=== PATIENT | male | born 1950 | race Caucasian/White ===

== ENCOUNTER → 2018-04-07 | Outpatient (CLI) | payer OTHER ==
[~2018-04-07] MED LIST: HYDR-5688 PO; MOME0.1O TOP; NAPR1TAB9 PO; PANT40TA PO
[2018-04-07 13:27] LABS: BASO % 0.3 %; BASO ABS # 0.02 K/uL (0-0.2); EOS % 0.5 %; EOS ABS # 0.03 K/uL (0-0.5); HEMATOCRIT 34.6 % (42-52); HEMOGLOBIN 10.8 g/dL (14.0-18.0); IG# 0.01 K/uL (0.00-0.02); LYMPH % 9.7 %; LYMPH ABS # 0.56 K/uL (1.2-3.4); MEAN CELL VOLUME 75.9 fL (80-100); MEAN CORPUSCULAR HEMOGLOBIN 23.7 pg (25-34); MEAN CORPUSCULAR HGB CONC 31.2 g/dl (32-36); MEAN PLATELET VOLUME 8.8 fL (7.4-10.4); MONO % 12.1 %; NEUT % 77.2 %; NEUT ABS # 4.45 K/uL (1.4-6.5); PLATELET COUNT 280 K/uL (130-400); RED CELL DISTRIBUTION WIDTH CV 20.3 % (11.5-14.5); RED CELL DISTRIBUTION WIDTH SD 56.5 fL (36.4-46.3); WHITE BLOOD COUNT 5.77 K/uL (4.8-10.8)
[2018-04-07 13:46] LABS: ALKALINE PHOSPHATASE 95 U/L (45-117); ALT/SGPT 13 U/L (12-78); AST/SGOT 14 U/L (15-37); BLOOD UREA NITROGEN 10 mg/dl (7-18); CARBON DIOXIDE 24 mmol/L (21-32); CREATININE 0.95 mg/dl (0.60-1.40); GLUCOSE 96 mg/dl (70-99); POTASSIUM 3.1 mmol/L (3.5-5.1); SODIUM 136 mmol/L (136-145); TOTAL PROTEIN 7.6 gm/dl (6.4-8.2)
== END | disposition home or self-care (01) ==
LOC: C.LAB 11:33
PROVIDERS: ATTEND Surgery
DX: R19.7 Diarrhea, unspecified (principal); D64.9 Anemia, unspecified; C18.9 Malignant neoplasm of colon, unspecified; Z98.890 Other specified postprocedural states

== ENCOUNTER 2018-05-02 10:58 | Emergency (ER) | payer OTHER ==
[~2018-05-02] VITALS: Ht 165.1 cm; Wt 84.8 kg
[2018-05-02 11:27] VITALS: TEMP 37; Ht 165.1 cm; Wt 84.8 kg
[2018-05-02] MEDS ORDERED: SODIUM CHLORIDE 0.9% 1000ML 1,000 ML IV STA (12:07)
[2018-05-02 12:27] LABS: BASO % 0.4 %; BASO ABS # 0.01 K/uL (0-0.2); EOS % 2.5 %; EOS ABS # 0.07 K/uL (0-0.5); HEMATOCRIT 36.9 % (42-52); HEMOGLOBIN 11.4 g/dL (14.0-18.0); IG# 0.01 K/uL (0.00-0.02); LYMPH % 16.3 %; LYMPH ABS # 0.46 K/uL (1.2-3.4); MEAN CELL VOLUME 80.6 fL (80-100); MEAN CORPUSCULAR HEMOGLOBIN 24.9 pg (25-34); MEAN CORPUSCULAR HGB CONC 30.9 g/dl (32-36); MONO % 17.3 %; MONO ABS # 0.49 K/uL (0.11-0.59); NEUT % 63.1 %; NEUT ABS # 1.79 K/uL (1.4-6.5); PLATELET COUNT 154 K/uL (130-400); RED CELL DISTRIBUTION WIDTH CV 20.5 % (11.5-14.5); RED CELL DISTRIBUTION WIDTH SD 60.5 fL (36.4-46.3); WHITE BLOOD COUNT 2.83 K/uL (4.8-10.8)
[2018-05-02 12:49] LABS: ALBUMIN 3.2 gm/dl (3.4-5.0); ALKALINE PHOSPHATASE 84 U/L (45-117); ALT/SGPT 15 U/L (12-78); AST/SGOT 18 U/L (15-37); BLOOD UREA NITROGEN 12 mg/dl (7-18); CALCIUM 8.9 mg/dl (8.5-10.1); CARBON DIOXIDE 23 mmol/L (21-32); CREATININE 1.04 mg/dl (0.60-1.40); GLUCOSE 77 mg/dl (70-99); LIPASE 172 U/L (73-393); POTASSIUM 3.8 mmol/L (3.5-5.1); SODIUM 138 mmol/L (136-145)
[2018-05-02] MEDS ORDERED: VANCOMYCIN HCL 125 MG/2.5ML SOLN PO STA (14:10)
[2018-05-02] MEDS ORDERED: VANC5CAP PO (14:15)
[2018-05-02 14:59] VITALS: BP 142/74; PULSE 54; O2SAT 99
--- NOTE | 2018-05-02 16:29 | EMERGENCY ROOM VISIT NOTE ---
History Report prepared by Stephen: Teena Summers Under the Supervision of: Dr. Tip Rogers M.D. First contact with patient: 11:57 Chief Complaint: GI ASSESSMENT Stated Complaint: POSITIVE C.DIFF History of Present Illness The patient is a 67 year old male who presents to the Emergency Room for a GI assessment. He is accompanied by his who reports that the patient had 3 feet of his bowel removed due to cancer in March and developed positive C.Diff 2 weeks lighter captain. The patient notes he had uncontrollable diarrhea that is green and slimy last night but denies any vomiting or fevers. He also states he had some abdominal pain which he describes as cramping. He states he has not eaten since 4 days lighter captain. Source of History: patient Onset: 2 weeks lighter captain Position: head, other (upper and lower extremities) Quality: cramping (abdominal pain), other (Positive C.Diff) Timing: other (after colon resection surgery) Associated Symptoms: + diarrhea (uncontrollable, green and slimy), No fevers , No vomiting Review of Systems See HPI for pertinent positives and negatives. A total of ten systems were reviewed and were otherwise negative. Past Medical & Surgical Medical Problems: (1) Colon cancer (2) No active medical problems Family History Diabetes mellitus FH: heart disease Hypertension Social History Smoking Status: Never Smoker Alcohol Use: none Marital Status: Housing Status: lives with significant other Occupation Status: employed Current/Historical Medications Scheduled Pantoprazole (Protonix), 40 MG PO QAM Vancomycin Hcl (Vancomycin), 1 CAP PO QID Allergies Coded Allergies: No Known Allergies (Unverified , 05/02/18) Physical Exam Vital Signs Date Time Temp Pulse Resp B/P (MAP) Pulse Ox O2 Delivery O2 Flow Rate FiO2 05/02/18 14:59 54 16 142/74 99 05/02/18 13:25 54 18 152/67 97 Room Air 05/02/18 11:27 37.0 71 18 134/76 98 Room Air Physical Exam GENERAL: Awake, alert, fatigued appearing , in no distress HENT: Normocephalic, atraumatic. Oropharynx unremarkable. EYES: Normal conjunctiva. Sclera non-icteric. NECK: Supple. No nuchal rigidity. RESPIRATORY: Clear to auscultation. No wheezes. Normal respiratory effort. CARDIAC: Normal rate. Normal rhythm. Extremities warm and well perfused. GI: Soft, non-distended. No tenderness to palpation. No rebound or guarding. No masses. Well healed midline abdominal scar without tenderness. RECTAL: Deferred. MUSCULOSKELETAL: Atraumatic. Chest examination reveals no tenderness. There is no CVA tenderness to palpation. LOWER EXTREMITIES: Calves are equal size bilaterally and non-tender. No edema NEURO: Normal sensorium. No sensory or motor deficits noted. No facial droop. SKIN: Warm and dry. No rash or jaundice noted. Medical Decision & Procedures Laboratory Results 05/02/18 12:15 Red Blood Count 4.58, Mean Corpuscular Volume 80.6, Mean Corpuscular Hemoglobin 24.9, Mean Corpuscular Hemoglobin Concent 30.9, Mean Platelet Volume 8.0, Neutrophils (%) (Auto) 63.1, Lymphocytes (%) (Auto) 16.3, Monocytes (%) (Auto) 17.3, Eosinophils (%) (Auto) 2.5, Basophils (%) (Auto) 0.4, Neutrophils # (Auto ) 1.79, Lymphocytes # (Auto) 0.46, Monocytes # (Auto) 0.49, Eosinophils # (Auto ) 0.07, Basophils # (Auto) 0.01 05/02/18 12:15 Test 05/02/18 12:15 05/02/18 13:30 White Blood Count 2.83 K/uL (4.8-10.8) Red Blood Count 4.58 M/uL (4.7-6.1) Hemoglobin 11.4 g/dL (14.0-18.0) Hematocrit 36.9 % (42-52) Mean Corpuscular Volume 80.6 fL (80-100) Mean Corpuscular Hemoglobin 24.9 pg (25-34) Mean Corpuscular Hemoglobin Concent 30.9 g/dl (32-36) Platelet Count 154 K/uL (130-400) Mean Platelet Volume 8.0 fL (7.4-10.4) Neutrophils (%) (Auto) 63.1 % Lymphocytes (%) (Auto) 16.3 % Monocytes (%) (Auto) 17.3 % Eosinophils (%) (Auto) 2.5 % Basophils (%) (Auto) 0.4 % Neutrophils # (Auto) 1.79 K/uL (1.4-6.5) Lymphocytes # (Auto) 0.46 K/uL (1.2-3.4) Monocytes # (Auto) 0.49 K/uL (0.11-0.59) Eosinophils # (Auto) 0.07 K/uL (0-0.5) Basophils # (Auto) 0.01 K/uL (0-0.2) RDW Standard Deviation 60.5 fL (36.4-46.3) RDW Coefficient of Variation 20.5 % (11.5-14.5) Immature Granulocyte % (Auto) 0.4 % Immature Granulocyte # (Auto) 0.01 K/uL (0.00-0.02) Polychromasia 1+ Hypochromasia PRESENT Anisocytosis PRESENT Microcytosis PRESENT Schistocytes 1+ Anion Gap 14.0 mmol/L (3-11) Est Creatinine Clear Calc Drug Dose 69.0 ml/min Estimated GFR () 85.7 Estimated GFR (Non- 73.9 BUN/Creatinine Ratio 11.2 (10-20) Calcium Level 8.9 mg/dl (8.5-10.1) Total Bilirubin 0.7 mg/dl (0.2-1) Direct Bilirubin 0.3 mg/dl (0-0.2) Aspartate Amino Transf (AST/SGOT) 18 U/L (15-37) Alanine Aminotransferase (ALT/SGPT) 15 U/L (12-78) Alkaline Phosphatase 84 U/L (45-117) Troponin I < 0.015 ng/ml (0-0.045) Total Protein 8.0 gm/dl (6.4-8.2) Albumin 3.2 gm/dl (3.4-5.0) Lipase 172 U/L (73-393) Urine Color DK YELLOW Urine Appearance CLEAR (CLEAR) Urine pH 5.0 (4.5-7.5) Urine Specific [place] 1.020 (1.000-1.030) Urine Protein NEG (NEG) Urine Glucose (UA) NEG (NEG) Urine Ketones 3+ (NEG) Urine Occult Blood 2+ (NEG) Urine Nitrite NEG (NEG) Urine Bilirubin NEG (NEG) Urine Urobilinogen NEG (NEG) Urine Leukocyte Esterase NEG (NEG) Urine WBC (Auto) 1-5 /hpf (0-5) Urine RBC (Auto) 0-4 /hpf (0-4) Urine Hyaline Casts (Auto) 5-10 /lpf (0-5) Urine Epithelial Cells (Auto) 5-10 /lpf (0-5) Urine Bacteria (Auto) NEG (NEG) Laboratory results reviewed by me Medications Administered Medications (Trade) Dose Ordered Sig/Ziggy Route Start Time Stop Time Status Last Admin Dose Admin Sodium Chloride 1,000 ml @ 999 mls/hr Q1H1M STAT IV 05/02/18 12:07 05/02/18 13:07 DC 05/02/18 12:07 999 MLS/HR Vancomycin HCl (Vancomycin Oral Soln) 125 mg ONE STAT PO 05/02/18 14:10 05/02/18 14:11 DC 05/02/18 14:10 125 MG ED Course 1200: The patient was evaluated in room B5. A complete history and physical exam was performed. 1207: Sodium Chloride 1000 ml @ 999 mls/hr IV 1409: I reevaluated the patient. Discussed results and discharge instructions: He verbalized understanding and agreement. The patient is ready for discharge. Medical Decision Triage Nursing notes reviewed. Differential diagnosis: Etiologies such as C.Diff, appendicitis, diverticulitis, PUD, biliary pathology , UTI, pancreatitis, obstruction, mesenteric ischemia, aortic pathology, infections, inflammatory bowel disease, renal colic, as well as others were entertained. Patient presents with complaint of abdominal cramping intermittent with pain earlier in the week and now just over 24-36 hours of diarrhea. History of C. difficile postoperatively last month. States he was on antibiotics for this and completed it and felt significantly improved until this past Friday. Denies pain now. Denies fever. Denies significant nausea. States decreased intake the last several days secondary to this. States 15 bowel movements yesterday with a "slimy "consistency. Benign abdomen on exam. Basic labs are completed but a lower suspicion for ACS, hepatitis, or pancreatitis. No believe we need a CT here. Doubt perforation. Likely C. difficile colitis given his history and stool samples were ordered. Given fluid rehydration. No acute kidney injury. No leukocytosis. Rehydrated here and states he actually feels well other than he keeps having bowel movements. Will start on oral vancomycin for first recurrence. Discussed with him close follow-up with his PCP will start on 14 day course of oral vancomycin. Discussed return criteria. Stable for discharge. Medication Reconcilliation Current Medication List: was personally reviewed by me Blood Pressure Screening Patient's blood pressure: Normal blood pressure Blood pressure disposition: Did not require urgent referral Impression Primary Impression: C. difficile diarrhea Scribe Attestation The scribe's documentation has been prepared under my direction and personally reviewed by me in its entirety. I confirm that the note above accurately reflects all work, treatment, procedures, and medical decision making performed by me. Departure Information Dispostion Home / Self-Care Prescriptions Vancomycin Hcl (Vancomycin) 125 Mg Cap 1 CAP PO QID for 14 Days, #56 CAP 0 Refills Prov: Tip Rogers M.D. 05/02/18 Referrals Evan Ochoa M.D. (PCP) Forms HOME CARE DOCUMENTATION FORM, IMPORTANT VISIT INFORMATION Patient Instructions My [facility] Additional Instructions Please utilize the prescribed antibiotic by mouth 4 times a day to treat your diarrhea. If he can feel severely dehydrated have significant abdominal pain, fevers, chest pain, or other concerns please return here for reevaluation. Follow-up with your regular doctor within the next 7-10 days for reevaluation to determine if a longer course of antibiotic. Hydration is paramount and please drink a good amount of water daily.
== END 2018-05-02 15:01 | disposition home or self-care (01) ==
LOC: C.EDB 10:59
DX: A04.72 Enterocolitis due to Clostridium difficile, not specified as recurrent (principal); Z90.49 Acquired absence of other specified parts of digestive tract; Z85.038 Personal history of other malignant neoplasm of large intestine; Z79.899 Other long term (current) drug therapy

== ENCOUNTER 2024-09-02 17:33 | Observation (INO) ==
[2024-09-02 18:14] LABS: Hematocrit (blood only) 36.6 % (42.0-52.0); Hemoglobin 12.8 g/dl (14.0-18.0); Mean Corpuscular Hemoglobin 31.4 pg (25.0-34.0); Mean Corpuscular Volume 89.9 fL (80.0-100.0); Mean Platelet Volume 8.7 fL (9.4-12.4); Platelet Count 154 K/uL (130-400); RDW Coefficient of Variation 12.7 % (11.5-14.5); RDW Standard Deviation 41.8 fL (36.4-46.3); Red Blood Count 4.07 M/uL (4.70-6.10); White Blood Count 5.62 K/ul (4.8-10.8)
--- NOTE | 2024-09-02 18:34 | Emergency Department Note ---
Impression & Plan Acute urinary retention, Anemia, Rectal bleeding, Acute hyperglycemia ED Provider Note NAME: KAMALA GARVIN AGE: 73 SEX: M : 1950 ARRIVES VIA: Walk-In INFORMANT: [Patient] ED PROVIDER(S): [Kobe Valles MD] CHIEF COMPLAINT: Unable to void HISTORY OF PRESENT ILLNESS: The patient is a 73-year-old male who had right inguinal surgery performed today. This was same-day surgery. He was able to urinate some before leaving the surgical center but since being home, has not been able to void. He feels he needs to urinate but cannot. The patient has not had fever, he does have some ongoing issues with his urinary stream but is not on medications for his prostate. Prior to my arrival in the room, the patient had a Langston catheter placed secondary to a bladder scan showing 745 cc of urine. He was feeling markedly better with the catheter placement. Of note, the patient was straining to move his urine and when he wiped the rectal area, he noticed some blood. The blood was bright red. PMHx/PSHx/Social Hx: See Below PHYSICAL EXAM: GENERAL: Patient is in no acute distress. HEENT: No acute trauma, normocephalic atraumatic, mucous membranes moist, no nasal congestion. NECK: No stridor, no adenopathy, no meningismus, trachea is midline. LUNGS: Clear to auscultation bilaterally, no wheeze, no rhonchi, breath sounds equal. HEART: Without murmurs gallops or rubs, regular rate and rhythm. ABDOMEN: Soft, nontender, no peritonitis. He does have a fresh surgical incision in the right lower quadrant consistent with the recent right inguinal hernia procedure. EXTREMITIES: No cyanosis, full range of motion of all the joints without pain or difficulty. NEUROLOGIC: Oriented x 3, no acute motor or sensory deficits, no focal weakness. SKIN: No jaundice, no diaphoresis. Groin: Circumcised, Langston catheter in place. No erythema. Rectal: The patient has a fairly large right sided external hemorrhoid. There is evidence for recent bleeding but no active bleeding. Digital exam does not show blood within the rectal vault. This exam was performed with a food demonstrator. DIFFERENTIAL DIAGNOSIS: Urinary retention, medication reaction, UTI, renal failure, among others. EMERGENCY DEPARTMENT PROCEDURES: Bladder scan showed 745 cc, significant retention. MEDICAL DECISION MAKING: There is no leukocytosis. The patient is anemic. Looking back at previous testing, he appears to have a chronic anemia. There was a normal platelet count. Renal panel testing showed hyperglycemia with a sugar of 342. The patient does not have a history of diabetes. There was no renal failure. No concerning liver enzyme elevation. Urinalysis showed glucose and blood, no findings of infection. Bladder scan showed significant urinary retention. A Langston catheter was placed with significant urinary output. Patient had complained of rectal bleeding. By my exam, I suspect he had suffered hemorrhoidal bleeding earlier, likely from straining to move his urine. There was no blood within the rectal vault. The patient was feeling markedly better once the catheter was placed. Over 1200 cc of urine drained. Patient was given 1 L of IV saline for hydration. He received a dose of oral Flomax. The patient presents with urinary retention, rectal bleeding and was found to be hyperglycemic, markedly hyperglycemic in fact. He did not have any history of diabetes. With all his findings and the recent surgery just earlier today, I do think a hospital stay, observation and monitoring is warranted. I spoke with the patient and case management. The on-call hospitalist was consulted. Prior/Outside records/notes reviewed: Today's surgical note describing his surgical procedure and discharge plans. Imaging/x-ray results per my interpretation: Chronic Medical/Social conditions affecting care: Advanced age, recent surgical procedure earlier today. Care/Management discussed with: Case management, the on-call hospitalist. Level of care consideration(s): After review of the information above and other included data: --I feel the patient can be managed safely as an outpatient DISPOSITION: Discharged Past Med/Surg History Problem List (Updated 09/02/24 @ 22:49 by Kobe Valles MD) Acute hyperglycemia (Acute) Rectal bleeding (Acute) Anemia (Acute) Acute urinary retention (Acute) Urinary retention Incarcerated right inguinal hernia History of incisional hernia repair (08/30/21) ncisional Hernia Open Repair with mesh; Enterolysis(Not Applicable) - Zeke Azar, 08/30/2021 Hx laparoscopic cholecystectomy 04/16/2021: Glidescope#3, ETT#7.5 at [facility]. No issues per anesthesia postop progress note, "rhythm is sinus bradycardia with rate in the 40s which is his baseline. His other vital signs are stable." Sinus bradycardia Diastolic dysfunction Grade 2 on 02/12/18 echocardiogram Hiatal hernia Colon cancer Anemia Rodriguez esophagus Encounter for pre-operative examination C. 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 difficile diarrhea remote hx, on continued vancomycin - no issues as long as taking vancomycin last incident was 2019 History of COVID-19 dx 08/07/2021 had cough and tested at [facility], no current issues Rodriguez's esophagus GERD (gastroesophageal reflux disease) Colon cancer - 2018 (s/p left hemicolectomy/sigmoidectomy) - 10/2022 - no chemo/xrt - [facility] Surgical History History of ERCP History of incisional hernia repair (08/30/21) incisional Hernia Open Repair with mesh; Enterolysis - Zeke Azar, DO Hx laparoscopic cholecystectomy History of colon surgery Oct 2022 colon cancer surgery [facility] History of left hemicolectomy Laparoscopic converted to open extended left sigmoidectomy and hemicolectomy with Enterolysis (03/13/18): Poor view with MAC #3 (grade view 4) > glide scope #3 blade used easily, atraumatic intubation at [facility]. No postop issues per anesthesia postop progress note. History of colonoscopy History of esophagogastroduodenoscopy (EGD) Family History Mother Family history of diabetes mellitus Uncle Family hx of colon cancer Colorectal cancer Other No family history of adverse response to anesthesia Denies family history of Ovarian cancer Prostate cancer Myocardial infarction Breast cancer Social History Smoking Status: Never smoker Second Hand Exposure: No; Do You Dip or Chew Tobacco: No; Hx Alcohol Use: No Hx Substance Use: No Preferred Language: Cymro Communication Ability: Effective Visual Impairment: No Limitations Software Analyst Required: No Beliefs That Will Affect Care: None marital status: Current Living Situation: Spouse Current Living Situation Comment: Lives with and grandson current occupational status: employed 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 How many Children do You have: 3 Feels Safe at Home: Yes Childhood Exposure to Second-Hand Smoke: Yes Diet: regular caffeine: Yes (tea) Dental Care, Regularly: Yes Physical Activity Frequency: Does not Exercise Seatbelt Use: always Sunscreen Use: No Assistive Devices: Glasses Allergies Allergies Allergy/AdvReac Type Severity Reaction Status Date / Time No Known Allergies Allergy Verified 09/02/24 08:42 Home Meds Home Medications Medication Instructions Recorded Confirmed magnesium oxide 400 mg PO DAILY 09/02/24 09/02/24 pantoprazole 40 mg tablet,delayed 40 mg PO DAILY 09/02/24 09/02/24 release vancomycin 125 mg capsule 125 mg PO DAILY 09/02/24 09/02/24 Results & Data (ED) Vital Signs Vital Signs - 24 hr 09/02/24 17:35 09/02/24 19:11 Temperature 36.8 C Temperature Source Temporal Artery Scan Pulse Rate 116 H Pulse Rate [Finger] 82 Pulse Rhythm Regular Pulse Strength Normal Respiratory Rate 18 18 Respiratory Effort / Characteristics Non-Labored Spontaneous Respiratory Depth Normal Blood Pressure 180/96 H Blood Pressure [Left Arm] 134/78 Blood Pressure Mean 124 Blood Pressure Mean [Left Arm] 96 Blood Pressure Position Sitting Pulse Oximetry 95 95 Oxygen Delivery Method Room Air Room Air Sepsis Recent Fever Within 48 Hours No Sepsis New/Unexplained Change in Mental Status N/A Sepsis Action Taken by Nursing No Action Required Home Medications Current Medication List: was personally reviewed by me Laboratory Data Attestation: I reviewed the patient's lab results. 09/02/24 17:56 09/02/24 17:56 Lab Results 09/02/24 09/02/24 09/02/24 Range/Units 17:56 18:48 18:58 WBC 5.62 (4.8-10.8) K/ul RBC 4.07 L (4.70-6.10) M/uL Hgb 12.8 L (14.0-18.0) g/dl Hct 36.6 L (42.0-52.0) % MCV 89.9 (80.0-100.0) fL MCH 31.4 (25.0-34.0) pg MCHC 35.0 (32.0-36.0) g/dL RDW Std Deviation 41.8 (36.4-46.3) fL RDW Coeff of Genna 12.7 (11.5-14.5) % Plt Count 154 (130-400) K/uL MPV 8.7 L (9.4-12.4) fL Immature Gran % (Auto) 1.1 % Neut % (Auto) 91.5 % Lymph % (Auto) 4.4 % Evangeline % (Auto) 2.8 % Eos % (Auto) 0.0 % Baso % (Auto) 0.2 % Neut # (Auto) 5.14 (1.40-6.50) K/uL Lymph # (Auto) 0.25 L (1.20-3.40) K/uL Evangeline # (Auto) 0.16 (0.11-0.59) K/uL Eos # (Auto) 0.00 (0.00-0.50) K/uL Baso # (Auto) 0.01 (0.00-0.20) K/uL Immature Gran # (Auto) 0.06 (0.01-0.20) K/uL Sodium 139 (136-145) mmol/L Potassium 4.5 (3.5-5.1) mmol/L Chloride 106 (98-107) mmol/L Carbon Dioxide 21 (21-32) mmol/L Anion Gap 12 H (3-11) BUN 21 (6-23) mg/dl Creatinine 1.36 (0.6-1.4) mg/dl Est Cr Clr Drug Dosing 48.2 ml/min eGFR 54.95 BUN/Creatinine Ratio 15.4 (10-20) Glucose 342 H* (70-99(Fasting)) mg/dl POC Glucose 303 H* (70-99) mg/dl Calcium 9.3 (8.6-10.3) mg/dl Total Bilirubin 0.4 (0.2-1.0) mg/dl AST 19 (13-39) U/L ALT 15 (7-52) U/L Alkaline Phosphatase 89 (34-104) U/L Total Protein 7.0 (6.0-8.3) gm/dl Albumin 4.1 (3.4-5.0) gm/dl Globulin 2.9 (2.5-4.0) gm/dl Albumin/Globulin Ratio 1.4 (0.9-2) Urine Color Yellow Urine Appearance Clear (Clear) Urine pH 6.0 (4.5-7.5) Ur Specific [place] 1.013 (1.000-1.030) Urine Protein Negative (Negative) Urine Glucose (UA) 2+ H (Negative) Urine Ketones Negative (Negative) Urine Blood 2+ H (Negative) Urine Nitrite Negative (Negative) Urine Bilirubin Negative (Negative) Urine Urobilinogen Negative (Negative) Ur Leukocyte Esterase Negative (Negative) Urine WBC (Auto) 0-5 (0-5) /hpf Urine RBC (Auto) >20 H (0-2) /hpf U Hyaline Cast (Auto) 0-2 (0-2) /lpf U Epithel Cells (Auto) 0-2 (0-2) /hpf Urine Bacteria (Auto) None Seen (None Seen) Administered Medications Sodium Chloride (Nss) 1,000 mls @ 80 mls/hr IV .[id number] LAMBERT Stop: 09/03/24 21:33 Last Admin: 09/02/24 21:48 Dose: 80 mls/hr Documented By: HIREN Insulin Aspart (Insulin Aspart Per Unit Charge) 0 units SC ACHS LAMBERT Stop: 10/02/24 21:33 Last Admin: 09/02/24 22:11 Dose: 1 units Documented By: HIREN Co-signed By: CAMILLE Discontinued Medications Sodium Chloride (Nss) 1,000 mls @ 999 mls/hr IV .Q1H1M ONE Stop: 09/02/24 20:03 Last Infusion: 09/02/24 20:39 Dose: Infused Documented By: Admin: 09/02/24 19:08 Dose: 999 mls/hr Documented By: KAEL Tamsulosin HCl (Tamsulosin Hcl 0.4 Mg Cap) 0.4 mg PO NOW ONE Stop: 09/02/24 18:24 Last Admin: 09/02/24 18:42 Dose: 0.4 mg Documented By: [id number] Discharge Plan Visit Data Chief Complaint: Unable to Void Stated Complaint: UNABLE TO VOID, BLOOD FROM RECTUM, JUST HAD SURG ED Provider: Kobe Valles Discharge Problem: Acute urinary retention, Anemia, Rectal bleeding, Acute hyperglycemia Patient Disposition: Admitted As Inpatient Condition: Fair Discharge Instructions Interventions: ED Discharge Assessment Last Done: 09/02/24 21:18 Discharge Problem: Anemia Qualifiers: Anemia type: unspecified type Qualified Code(s): D64.9 - Anemia, unspecified
[2024-09-02 18:35] LABS: Albumin Globulin Ratio 1.4 (0.9-2); Albumin Level 4.1 gm/dl (3.4-5.0); BUN Creatinine Ratio 15.4 (10-20); Bilirubin,Total 0.4 mg/dl (0.2-1.0); Calcium 9.3 mg/dl (8.6-10.3); Creatinine Clr Calc Pharmacy 48.2 ml/min; Globulin 2.9 gm/dl (2.5-4.0); Potassium 4.5 mmol/L (3.5-5.1)
[2024-09-02 18:36] LABS: Basophils # (auto) 0.01 K/uL (0.00-0.20); Basophils % (auto) 0.2 %; Immature Granulocytes # (auto) 0.06 K/uL (0.01-0.20); Immature Granulocytes % (auto) 1.1 %; Lymphocytes # (auto) 0.25 K/uL (1.20-3.40); Lymphocytes % (auto) 4.4 %; Monocytes # (auto) 0.16 K/uL (0.11-0.59); Monocytes % (auto) 2.8 %; Neutrophils # (auto) 5.14 K/uL (1.40-6.50); Neutrophils % (auto) 91.5 %
[2024-09-02] MEDS: TAMSULOSIN HCL 0.4 MG CAP PO ONE (18:42)
[2024-09-02 19:02] LABS: Appearance Urine Clear (Clear); Bacteria Urine Automated None Seen (None Seen); Bilirubin Urine Negative (Negative); Blood Urine 2+ (Negative); Cast Urine Automated 0-2 /lpf (0-2); Color Urine Yellow; Epithelial Cell Urine Auto 0-2 /hpf (0-2); Glucose Urine UA 2+ (Negative); Ketones Urine Negative (Negative); Leukocyte Esterase Urine Negative (Negative); Nitrite Urine Negative (Negative); Protein Urine Negative (Negative); RBC Urine Automated >20 /hpf (0-2); Specific Gravity Urine 1.013 (1.000-1.030); Urobilinogen Urine Negative (Negative); WBC Urine Automated 0-5 /hpf (0-5)
[2024-09-02] MEDS: SODIUM CHLORIDE 0.9% 1,000 ML IV ONE (19:08)
--- NOTE | 2024-09-02 20:48 | History & Physical Report ---
Date of Service September 02, 2024 Assessment & Plan (1) Urinary retention: Plan: 73-year-old male with past medical history significant for GERD, history of recurrent C. difficile colitis and currently on p.o. vancomycin once daily, history of colon cancer status post partial colectomy was status post surgery for incarcerated right inguinal hernia today and after going home he was having difficulty micturating and came back to the hospital. Patient states after going home he could not micturate. And while he was straining to micturate he was also having some rectal bleeding from his hemorrhoids. In the ER after Langston catheter placement drained more than 1 L. Currently feeling better. Denies abdominal pain. Denies any nausea. After going home he could eat his dinner. Denies any chest pain or shortness of breath. No cough. No headache. No runny nose or sore throat. Afebrile. Normal bowel movements as per patient. At home some days he used to have difficulty micturating in the morning but as the day progressed he was able to micturate okay. Currently resting comfortably and hemodynamically stable. Sugars are running high in the ER. No known history of diabetes. Urinary retention Postop Status post Langston Flomax Possible underlying BPH Observe in the hospital Urology consult in a.m. for further recommendations Hyperglycemia No history of diabetes Insulin sliding scale Will follow HbA1c levels Incarcerated right inguinal hernia S/p surgery today Surgical site looks okay Surgical consult in a.m. Rectal bleed Mostly from hemorrhoids Will monitor Hemoglobin 12.8 around baseline History of recurrent C. difficile On p.o. vancomycin once daily GERD On Protonix History of colon cancer Status post partial colectomy DVT prophylaxis SCDs for now Disposition Observation medical floor Full code. History of Present Illness Chief Complaint: Urinary retention and hyperglycemia Primary Care Provider: Frandy Gardner MD 73-year-old male with past medical history significant for GERD, history of recurrent C. difficile colitis and currently on p.o. vancomycin once daily, history of colon cancer status post partial colectomy was status post surgery for incarcerated right inguinal hernia today and after going home he was having difficulty micturating and came back to the hospital. Patient states after going home he could not micturate. And while he was straining to micturate he was also having some rectal bleeding from his hemorrhoids. In the ER after F oley catheter placement drained more than 1 L. Currently feeling better. Denies abdominal pain. Denies any nausea. After going home he could eat his dinner. Denies any chest pain or shortness of breath. No cough. No headache. No runny nose or sore throat. Afebrile. Normal bowel movements as per patient. At home some days he used to have difficulty micturating in the morning but as the day progressed he was able to micturate okay. Currently resting comfortably and hemodynamically stable. Sugars are running high in the ER. No known history of diabetes. Past medical history. As mentioned above Past surgical history. Cholecystectomy. Colonoscopy. EGD. ERCP. Laparoscopic partial robotic colectomy with anastomosis. Repair of incisional hernia. Status post repair of incarcerated right inguinal hernia. Social history. . No smoking. No alcohol use. No drug use. Family history. No known family history on file. Allergies Allergy/AdvReac Type Severity Reaction Status Date / Time No Known Allergies Allergy Verified 09/02/24 08:42 Home Medications Medication Instructions Recorded Confirmed Type magnesium oxide 400 mg PO DAILY 09/02/24 09/02/24 History pantoprazole 40 mg tablet,delayed 40 mg PO DAILY 09/02/24 09/02/24 History release vancomycin 125 mg capsule 125 mg PO DAILY 09/02/24 09/02/24 History Past Med/Surg History Problem List (Updated 09/02/24 @ 22:49 by Kobe Valles MD) Acute hyperglycemia (Acute) Rectal bleeding (Acute) Anemia (Acute) Acute urinary retention (Acute) Urinary retention Incarcerated right inguinal hernia History of incisional hernia repair (08/30/21) ncisional Hernia Open Repair with mesh; Enterolysis(Not Applicable) - Zeke Azar, DO 08/30/2021 Hx laparoscopic cholecystectomy 04/16/2021: Glidescope#3, ETT#7.5 at [facility]. No issues per anesthesia postop progress note, "rhythm is sinus bradycardia with rate in the 40s which is his baseline. His other vital signs are stable." Sinus bradycardia Diastolic dysfunction Grade 2 on 02/12/18 echocardiogram Hiatal hernia Colon cancer Anemia Rodriguez esophagus Encounter for pre-operative examination C. difficile diarrhea (Acute) remote hx, on continued vancomycin Medical History Sinus bradycardia no creative project manager Hiatal hernia Incarcerated right inguinal hernia Diastolic dysfunction - pt unaware - Grade 2 on 02/12/18 echocardiogram - no creative project manager - no physical limitations per 08/23/24 PAT nursing interview C. difficile diarrhea remote hx, on continued vancomycin - no issues as long as taking vancomycin last incident was 2019 History of COVID-19 dx 08/07/2021 had cough and tested at [facility], no current issues Rodriguez's esophagus GERD (gastroesophageal reflux disease) Colon cancer - 2018 (s/p left hemicolectomy/sigmoidectomy) - 10/2022 - no chemo/xrt - [facility] Surgical History History of ERCP History of incisional hernia repair (08/30/21) incisional Hernia Open Repair with mesh; Enterolysis - Zeke Azar, DO Hx laparoscopic cholecystectomy History of colon surgery Oct 2022 colon cancer surgery [facility] History of left hemicolectomy Laparoscopic converted to open extended left sigmoidectomy and hemicolectomy with Enterolysis (03/13/18): Poor view with MAC #3 (grade view 4) > glide scope #3 blade used easily, atraumatic intubation at [facility]. No postop issues per anesthesia postop progress note. History of colonoscopy History of esophagogastroduodenoscopy (EGD) Family History Mother Family history of diabetes mellitus Uncle Family hx of colon cancer Colorectal cancer Other No family history of adverse response to anesthesia Denies family history of Ovarian cancer Prostate cancer Myocardial infarction Breast cancer Social History Smoking Status: Never smoker Second Hand Exposure: No; Do You Dip or Chew Tobacco: No; Tobacco Cessation Education Requested by Patient: No Hx Alcohol Use: No Hx Substance Use: No Preferred Language: Cuban Communication Ability: Effective Visual Impairment: No Limitations Coater Operator Required: No Beliefs That Will Affect Care: None marital status: Current Living Situation: Spouse Current Living Situation Comment: Lives with and grandson current occupational status: employed 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 ENT- oropharynx clear Neck- supple, no JVD. Lungs- clear to auscultation no wheezing or crackles. Heart- regular rate and rhythm; no murmur, no gallop. Abdomen- normal bowel sounds, soft, nontender, no distension. Right inguinal surgical site no erythema or drainage seen. Extremities- no pretibial edema. Neuro- alert, oriented x 3; PERRL, no facial palsy; no dysarthria; moves extremities Results & Data Results & Data Vital Signs (Past 12 Hours) Vital Signs Temp Pulse Pulse Resp BP BP Pulse Ox 09/02/24 19:11 82 18 134/78 95 09/02/24 17:35 36.8 C 116 H 18 180/96 H 95 O2 Del Method 09/02/24 19:11 Room Air 09/02/24 17:35 Room Air Diagnostic Findings Laboratory Results WBC 5.62 K/ul (4.8-10.8) 09/02/24 17:56 RBC 4.07 M/uL (4.70-6.10) L 09/02/24 17:56 Hgb 12.8 g/dl (14.0-18.0) L 09/02/24 17:56 Hct 36.6 % (42.0-52.0) L 09/02/24 17:56 MCV 89.9 fL (80.0-100.0) 09/02/24 17:56 MCH 31.4 pg (25.0-34.0) 09/02/24 17:56 MCHC 35.0 g/dL (32.0-36.0) 09/02/24 17:56 RDW Std Deviation 41.8 fL (36.4-46.3) 09/02/24 17:56 RDW Coeff of Genna 12.7 % (11.5-14.5) 09/02/24 17:56 Plt Count 154 K/uL (130-400) 09/02/24 17:56 MPV 8.7 fL (9.4-12.4) L 09/02/24 17:56 Immature Gran % (Auto) 1.1 % 09/02/24 17:56 Neut % (Auto) 91.5 % 09/02/24 17:56 Lymph % (Auto) 4.4 % 09/02/24 17:56 Wilkinson % (Auto) 2.8 % 09/02/24 17:56 Eos % (Auto) 0.0 % 09/02/24 17:56 Baso % (Auto) 0.2 % 09/02/24 17:56 Neut # (Auto) 5.14 K/uL (1.40-6.50) 09/02/24 17:56 Lymph # (Auto) 0.25 K/uL (1.20-3.40) L 09/02/24 17:56 Wilkinson # (Auto) 0.16 K/uL (0.11-0.59) 09/02/24 17:56 Eos # (Auto) 0.00 K/uL (0.00-0.50) 09/02/24 17:56 Baso # (Auto) 0.01 K/uL (0.00-0.20) 09/02/24 17:56 Immature Gran # (Auto) 0.06 K/uL (0.01-0.20) 09/02/24 17:56 Sodium 139 mmol/L (136-145) 09/02/24 17:56 Potassium 4.5 mmol/L (3.5-5.1) 09/02/24 17:56 Chloride 106 mmol/L (98-107) 09/02/24 17:56 Carbon Dioxide 21 mmol/L (21-32) 09/02/24 17:56 Anion Gap 12 (3-11) H 09/02/24 17:56 BUN 21 mg/dl (6-23) 09/02/24 17:56 Creatinine 1.36 mg/dl (0.6-1.4) 09/02/24 17:56 Est Cr Clr Drug Dosing 48.2 ml/min 09/02/24 17:56 eGFR 54.95 09/02/24 17:56 BUN/Creatinine Ratio 15.4 (10-20) 09/02/24 17:56 Glucose 342 mg/dl (70-99(Fasting)) H* 09/02/24 17:56 POC Glucose 303 mg/dl (70-99) H* 09/02/24 18:58 Calcium 9.3 mg/dl (8.6-10.3) 09/02/24 17:56 Total Bilirubin 0.4 mg/dl (0.2-1.0) 09/02/24 17:56 AST 19 U/L (13-39) 09/02/24 17:56 ALT 15 U/L (7-52) 09/02/24 17:56 Alkaline Phosphatase 89 U/L (34-104) 09/02/24 17:56 Total Protein 7.0 gm/dl (6.0-8.3) 09/02/24 17:56 Albumin 4.1 gm/dl (3.4-5.0) 09/02/24 17:56 Globulin 2.9 gm/dl (2.5-4.0) 09/02/24 17:56 Albumin/Globulin Ratio 1.4 (0.9-2) 09/02/24 17:56 Urine Color Yellow 09/02/24 18:48 Urine Appearance Clear (Clear) 09/02/24 18:48 Urine pH 6.0 (4.5-7.5) 09/02/24 18:48 Ur Specific Eugene 1.013 (1.000-1.030) 09/02/24 18:48 Urine Protein Negative (Negative) 09/02/24 18:48 Urine Glucose (UA) 2+ (Negative) H 09/02/24 18:48 Urine Ketones Negative (Negative) 09/02/24 18:48 Urine Blood 2+ (Negative) H 09/02/24 18:48 Urine Nitrite Negative (Negative) 09/02/24 18:48 Urine Bilirubin Negative (Negative) 09/02/24 18:48 Urine Urobilinogen Negative (Negative) 09/02/24 18:48 Ur Leukocyte Esterase Negative (Negative) 09/02/24 18:48 Urine WBC (Auto) 0-5 /hpf (0-5) 09/02/24 18:48 Urine RBC (Auto) >20 /hpf (0-2) H 12/26/24 18:48 U Hyaline Cast (Auto) 0-2 /lpf (0-2) 09/02/24 18:48 U Epithel Cells (Auto) 0-2 /hpf (0-2) 09/02/24 18:48 Urine Bacteria (Auto) None Seen (None Seen) 09/02/24 18:48 Code Status & VTE Plan VTE Prophylaxis Plan VTE Prophylaxis will be ordered: Yes
[2024-09-02] MEDS ORDERED: DEXTROSE 50% 50 ML SYRINGE IV PRN (21:34)
[2024-09-02] MEDS ORDERED: GLUCOSE 10 TAB/TUBE PO PRN (21:34)
[2024-09-02] MEDS ORDERED: ACETAMINOPHEN 325 MG TAB PO PRN (21:34)
[2024-09-02] MEDS ORDERED: GLUCOSE 40% GEL 15 GM TUBE PO PRN (21:34)
[2024-09-02] MEDS ORDERED: GLUCAGON FOR INJ 1 MG VIAL SQ PRN (21:34)
[2024-09-02] MEDS ORDERED: CARBOHYDRATES FOR HYPOGLYCEMIA PO PRN (21:34)
[2024-09-02] MEDS ORDERED: POLYETHYLENE (MIRALAX) 17 GM PACK PO PRN (21:34)
[2024-09-02] MEDS: SODIUM CHLORIDE 0.9% 1,000 ML IV SCH (21:48)
[2024-09-02] MEDS ORDERED: traMADol HCL 50 MG TABLET PO PRN (22:06)
[2024-09-02] MEDS: INSULIN ASPART PER UNIT CHARGE SC SCH (22:11)
[2024-09-03 01:24] VITALS: RESP 18
[2024-09-03 05:58] LABS: Basophils # (auto) 0.01 K/uL (0.00-0.20); Basophils % (auto) 0.2 %; Eosinophils # (auto) 0.01 K/uL (0.00-0.50); Eosinophils % (auto) 0.2 %; Hematocrit (blood only) 31.3 % (42.0-52.0); Hemoglobin 10.9 g/dl (14.0-18.0); Immature Granulocytes # (auto) 0.03 K/uL (0.01-0.20); Immature Granulocytes % (auto) 0.5 %; Lymphocytes # (auto) 0.41 K/uL (1.20-3.40); Lymphocytes % (auto) 7.4 %; Mean Corpuscular Hemoglobin 31.9 pg (25.0-34.0); Mean Corpuscular Hgb Conc 34.8 g/dL (32.0-36.0); Mean Corpuscular Volume 91.5 fL (80.0-100.0); Monocytes # (auto) 0.55 K/uL (0.11-0.59); Monocytes % (auto) 9.9 %; Neutrophils # (auto) 4.56 K/uL (1.40-6.50); Neutrophils % (auto) 81.8 %; Platelet Count 122 K/uL (130-400); RDW Coefficient of Variation 12.8 % (11.5-14.5); RDW Standard Deviation 42.5 fL (36.4-46.3); Red Blood Count 3.42 M/uL (4.70-6.10); White Blood Count 5.57 K/ul (4.8-10.8)
[2024-09-03 06:10] LABS: BUN Creatinine Ratio 14.7 (10-20); Calcium 8.6 mg/dl (8.6-10.3); Creatinine Clr Calc Pharmacy 64.5 ml/min; Magnesium 1.6 mg/dl (1.7-2.4); Potassium 4.3 mmol/L (3.5-5.1)
[2024-09-03 07:17] LABS: Estimated Average Glucose 94 mg/dl; Hemoglobin A1C 4.9 % (4.5-5.6)
[2024-09-03 07:36] VITALS: BP 148/75; PULSE 61; O2SAT 97
--- NOTE | 2024-09-03 08:13 | Surgery Consultation ---
Date of Consultation September 03, 2024 Assessment & Plan (1) Incarcerated right inguinal hernia: This is a 73yM who is s/p open right inguinal hernia repair on 09/02/[address] azar who presented to the [facility] ED on the evening of 09/02/24 with complaints of urinary retention. Patient reports he was able to void a small amount in the PACU and was discharged to home. Once home he began feeling pain/pressure over his bladder with the inability to void. Because of his symptoms he presented to the ER for evaluation. He also reported some blood per rectum when trying to void and states he does have a hemorrhoid that acts up from time to time and believes its related to that. he since denies further bleeding this Am. He is eating/drinking fine without nausea/vomiting and reports pain of his surgical site is well controlled and denies any issues in that regard. In the ER patient was bladder scanned for >700cc. A best catheter was then placed with relief in his symptoms. Decision was made to admit patient overnight for observation. He is feeling well this AM. No surgical complaints at the moment. He is eating without problems. Wound is c/d/i with some mild surrounding bruising. It is non tender at the surgical site. He denies further blood per rectum. Recommend supportive care for hemorrhoid- sitz baths, tucks pads, stool softeners. He may d/c from our standpoint. urology will likely set patient up for voiding trial in the office. he may follow up with us as previously scheduled in 1-2 weeks time. History of Present Illness Attending Physician: Melani Degroot MD History of Present Illness This is a 73yM who is s/p open right inguinal hernia repair on 09/02/[address] azar who presented to the [facility] ED on the evening of 09/02/24 with complaints of urinary retention. Patient reports he was able to void a small amount in the PACU and was discharged to home. Once home he began feeling pain/pressure over his bladder with the inability to void. Because of his symptoms he presented to the ER for evaluation. He also reported some blood per rectum when trying to void and states he does have a hemorrhoid that acts up from time to time and believes its related to that. he since denies further bleeding this Am. He is eating/drinking fine without nausea/vomiting and reports pain of his surgical site is well controlled and denies any issues in that regard. Allergies Allergy/AdvReac Type Severity Reaction Status Date / Time No Known Allergies Allergy Verified 09/02/24 08:42 Home Medications Medication Instructions Recorded Confirmed Type magnesium oxide 400 mg PO DAILY 09/02/24 09/02/24 History pantoprazole 40 mg tablet,delayed 40 mg PO DAILY 09/02/24 09/02/24 History release vancomycin 125 mg capsule 125 mg PO DAILY 09/02/24 09/02/24 History Patient History Medical History Sinus bradycardia no instructor hairspring Hiatal hernia Incarcerated right inguinal hernia Diastolic dysfunction - pt unaware - Grade 2 on 02/12/18 echocardiogram - no instructor hairspring - no physical limitations per 08/23/24 PAT nursing interview C. difficile diarrhea remote hx, on continued vancomycin - no issues as long as taking vancomycin last incident was 2019 History of COVID-19 dx 08/07/2021 had cough and tested at [facility], no current issues Rodriguez's esophagus GERD (gastroesophageal reflux disease) Colon cancer - 2018 (s/p left hemicolectomy/sigmoidectomy) - 10/2022 - no chemo/xrt - [facility] Oncology Surgical History History of ERCP History of incisional hernia repair (08/30/21) incisional Hernia Open Repair with mesh; Enterolysis - Zeke Azar, DO Hx laparoscopic cholecystectomy History of colon surgery Oct 2022 colon cancer surgery [facility] History of left hemicolectomy Laparoscopic converted to open extended left sigmoidectomy and hemicolectomy with Enterolysis (03/13/18): Poor view with MAC #3 (grade view 4) > glide scope #3 blade used easily, atraumatic intubation at [facility]. No postop issues per anesthesia postop progress note. History of colonoscopy History of esophagogastroduodenoscopy (EGD) Family History Mother Family history of diabetes mellitus Uncle Family hx of colon cancer Colorectal cancer Other No family history of adverse response to anesthesia Denies family history of Ovarian cancer Prostate cancer Myocardial infarction Breast cancer Social History Smoking Status: Never smoker Second Hand Exposure: No; Do You Dip or Chew Tobacco: No; Tobacco Cessation Education Requested by Patient: No Hx Alcohol Use: No Hx Substance Use: No Preferred Language: Bengali Communication Ability: Effective Visual Impairment: No Limitations Acquisition Consultant Required: No Beliefs That Will Affect Care: None marital status: Current Living Situation: Spouse Current Living Situation Comment: Lives with and grandson current occupational status: employed 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 How many Children do You have: 3 Other Information That Helps Us Care for You: No Feels Safe at Home: Yes Safety Concerns: Feels Safe At This Time Childhood Exposure to Second-Hand Smoke: Yes Diet: regular caffeine: Yes (tea) Dental Care, Regularly: Yes Physical Activity Frequency: Does not Exercise Seatbelt Use: always Sunscreen Use: No Assistive Devices: Glasses and Hospital Bed Review of Systems Constitutional: no fever Respiratory: no dyspnea Gastrointestinal: + abdominal pain (pain related to urinar y retention over bladder) and + problem reported (some blood wipe wiping per rectum); no bloating, no nausea and no vomiting Genitourinary: + difficulty urinating Physical Exam Physical Exam: awake/alert, no distress Respiratory: normal respiratory effort Gastrointestinal (Abdomen): Inspection/Auscultation: + abdominal surgical incision (c/d/i with some mild ecchymosis noted); abdomen not distended Per cussion/Palpation: abdomen soft; abdomen nontender best in place Results & Data Vital Signs (Past 12 Hours) Vital Signs Temp Pulse Resp BP Pulse Ox O2 Del Method 09/03/24 07:36 97.5 F L 61 18 148/75 H 97 Room Air 09/03/24 05:01 98.1 F 62 18 156/76 H 98 Room Air 09/03/24 01:24 98.1 F 93 H 18 120/77 96 Room Air 09/02/24 21:35 97.7 F 64 16 166/75 H 98 Room Air 09/02/24 21:25 97.7 F 64 16 166/75 H 98 Room Air PG Care Time/CCT Total # of Minutes Spent Total Time Spent with Patient: Total time spent is greater than 50% in coordination of care (as documented) at patient's floor/unit and/or counseling patient: Coding Level of Care Code None Diagnoses Incarcerated right inguinal hernia K40.30
--- NOTE | 2024-09-03 09:11 | Urology Consultation ---
<Statement entered by Scott Melvin MD - 09/03/24 13:01> Postop urinary retention currently managed with indwelling Langston catheter. Would recommend to maintain this in place for at least 1 week for bladder rest. Urology will coordinate voiding trial as an outpatient. Date of Consultation September 03, 2024 Assessment & Plan (1) Acute urinary retention: Plan 73yo/M who is s/p open right inguinal hernia repair on 09/02/[address] Azar who presented to the [facility] ED on the evening of 09/02/24 with complaints of urinary retention. On arrival, patient was bladder scanned for >700ml of urine and a Langston catheter was placed in the ED with immediate 1200ml urine output. Urology consulted for postop urinary retention. Urinary retention currently managed with a Langston catheter. Catheter is intact and draining appropriately. Recommend maintaining Langston catheter for 1 week to allow for bladder rest/decompression. Continue tamsulosin. Will arrange outpatient follow-up with our service for voiding trial. Urology will sign off. Please call with any further questions/concerns. History of Present Illness Attending Physician: Melani Degroot MD History of Present Illness This is a 73 year old male who is s/p open right inguinal hernia repair on 09/02/[address] Azar who presented to the [facility] ED on the evening of 09/02/24 with complaints of urinary retention. Patient reports he was able to void a small amount in the PACU and was discharged to home. Once home he began feeling pain/pressure over his bladder with the inability to void. Because of his symptoms he presented to the ER for evaluation. On arrival he had a bladder scan showing 745 mL of urine. A Langston catheter was placed with approx 1200ml of immediate urine output. Per notes, patient reported feeling markedly better following catheter placement. However, he also reported rectal bleeding and was found to be hyperglycemic, and therefore was admitted to medicine service for observation. Chart review: Afebrile and hemodynamically stable Labs (09/03/2024): WBC 5.57, hemoglobin 10.9, creatinine 1.02 Urinalysis 09/02/2024 showing 2+ blood, >20RBC, negative nitrite, negative LE, negative bacteria Patient was seen at bedside today. He is awake and resting in bed on arrival. No acute distress. Langston intact and draining clear yellow urine. Patient denies any pain or discomfort with the Langston catheter. He does report a history of postop urinary retention and BPH. He does not currently follow with a urologist. Denies baseline urinary issues or bother. Allergies Allergy/AdvReac Type Severity Reaction Status Date / Time No Known Allergies Allergy Verified 09/02/24 08:42 Home Medications Medication Instructions Recorded Confirmed Type magnesium oxide 400 mg PO DAILY 09/02/24 09/02/24 History pantoprazole 40 mg tablet,delayed 40 mg PO DAILY 09/02/24 09/02/24 History release vancomycin 125 mg capsule 125 mg PO DAILY 09/02/24 09/02/24 History Patient History Medical History Sinus bradycardia no safety intern Hiatal hernia Incarcerated right inguinal hernia Diastolic dysfunction - pt unaware - Grade 2 on 02/12/18 echocardiogram - no safety intern - no physical limitations per 08/23/24 PAT nursing interview C. difficile diarrhea remote hx, on continued vancomycin - no issues as long as taking vancomycin last incident was 2019 History of COVID-19 dx 08/07/2021 had cough and tested at [facility], no current issues Rodriguez's esophagus GERD (gastroesophageal reflux disease) Colon cancer - 2018 (s/p left hemicolectomy/sigmoidectomy) - 10/2022 - no chemo/xrt - [facility] Oncology Surgical History History of ERCP History of incisional hernia repair (08/30/21) incisional Hernia Open Repair with mesh; Enterolysis - Zeke Azar, DO Hx laparoscopic cholecystectomy History of colon surgery Oct 2022 colon cancer surgery [facility] History of left hemicolectomy Laparoscopic converted to open extended left sigmoidectomy and hemicolectomy with Enterolysis (03/13/18): Poor view with MAC #3 (grade view 4) > glide scope #3 blade used easily, atraumatic intubation at [facility]. No postop issues per anesthesia postop progress note. History of colonoscopy History of esophagogastroduodenoscopy (EGD) Family History Mother Family history of diabetes mellitus Uncle Family hx of colon cancer Colorectal cancer Other No family history of adverse response to anesthesia Denies family history of Ovarian cancer Prostate cancer Myocardial infarction Breast cancer Social History Smoking Status: Never smoker Second Hand Exposure: No; Do You Dip or Chew Tobacco: No; Tobacco Cessation Education Requested by Patient: No Hx Alcohol Use: No Hx Substance Use: No Preferred Language: Romanian Communication Ability: Effective Visual Impairment: No Limitations Speech Correction Assistant Required: No Beliefs That Will Affect Care: None marital status: Current Living Situation: Spouse Current Living Situation Comment: Lives with and grandson current occupational status: employed 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 How many Children do You have: 3 Other Information That Helps Us Care for You: No Feels Safe at Home: Yes Safety Concerns: Feels Safe At This Time Childhood Exposure to Second-Hand Smoke: Yes Diet: regular caffeine: Yes (tea) Dental Care, Regularly: Yes Physical Activity Frequency: Does not Exercise Seatbelt Use: always Sunscreen Use: No Assistive Devices: Glasses and Hospital Bed Review of Systems Review of Systems: All systems reviewed & are unremarkable except as noted in HPI & below Physical Exam Constitutional: no acute distress Respiratory: no respiratory distress and no labored breathing Musculoskeletal: Head/Neck/Chest: normocephalic Skin: No visible rashes or lesions to exposed skin areas Neurologic: awake Psychiatric: A+Ox3, euthymic affect Genitourinary: Langston intact Results & Data Vital Signs (Past 12 Hours) Vital Signs Temp Pulse Resp BP Pulse Ox O2 Del Method 09/03/24 07:36 36.4 C L 61 18 148/75 H 97 Room Air 09/03/24 05:01 36.7 C 62 18 156/76 H 98 Room Air 09/03/24 01:24 36.7 C 93 H 18 120/77 96 Room Air 09/02/24 21:35 36.5 C 64 16 166/75 H 98 Room Air 09/02/24 21:25 36.5 C 64 16 166/75 H 98 Room Air PG Care Time/CCT Total # of Minutes Spent Total Time Spent with Patient: Total time spent is greater than 50% in coordination of care (as documented) at patient's floor/unit and/or counseling patient: Coding Level of Care Code 92928 INT INP/OBS CARE MIN Diagnoses Acute urinary retention R33.8
[2024-09-03] MEDS: MAGNESIUM SULFATE / D5W 1 GM/100 ML BAG IV SCH (09:39)
[2024-09-03] MEDS: PANTOprazole 40 MG TAB PO SCH (11:38)
[2024-09-03] MEDS: CHERRY SYRUP 5 ML UDP PO SCH (11:38)
[2024-09-03] MEDS: MAGNESIUM OXIDE 400 MG TAB PO SCH (11:38)
[2024-09-03] MEDS: VANCOMYCIN HCL 125 MG/2.5ML SOLN PO SCH (11:38)
--- NOTE | 2024-09-03 13:25 | Discharge Summary ---
Date of Service September 03, 2024 Admission HPI Per Admitting Provider 73-year-old male with past medical history significant for GERD, history of recurrent C. difficile colitis and currently on p.o. vancomycin once daily, history of colon cancer status post partial colectomy was status post surgery for incarcerated right inguinal hernia today and after going home he was having difficulty micturating and came back to the hospital. Patient states after going home he could not micturate. And while he was straining to micturate he was also having some rectal bleeding from his hemorrhoids. In the ER after Langston catheter placement drained more than 1 L. Currently feeling better. Denies abdominal pain. Denies any nausea. After going home he could eat his dinner. Denies any chest pain or shortness of breath. No cough. No headache. No runny nose or sore throat. Afebrile. Normal bowel movements as per patient. At home some days he used to have difficulty micturating in the morning but as the day progressed he was able to micturate okay. Currently resting comfortably and hemodynamically stable. Sugars are running high in the ER. No known history of diabetes. Past medical history. As mentioned above Past surgical history. Cholecystectomy. Colonoscopy. EGD. ERCP. Laparoscopic partial robotic colectomy with anastomosis. Repair of incisional hernia. Status post repair of incarcerated right inguinal hernia. Social history. . No smoking. No alcohol use. No drug use. Family history. No known family history on file. Admission Exam Per Admitting Provider General- Not in acute distress Head- atraumatic Eyes- PERRL. ENT- oropharynx clear Neck- supple, no JVD. Lungs- clear to auscultation no wheezing or crackles. Heart- regular rate and rhythm; no murmur, no gallop. Abdomen- normal bowel sounds, soft, nontender, no distension. Right inguinal surgical site no erythema or drainage seen. Extremities- no pretibial edema. Neuro- alert, oriented x 3; PERRL, no facial palsy; no dysarthria; moves extremities Principal Diagnosis Postop urinary retention Discharge Exam General- Not in acute distress Head- atraumatic Eyes- PERRL. ENT- oropharynx clear Neck- supple, no JVD. Lungs- clear to auscultation no wheezing or crackles. Heart- regular rate and rhythm; no murmur, no gallop. Abdomen- normal bowel sounds, soft, nontender, no distension. Right inguinal surgical site no erythema or drainage seen. Extremities- no pretibial edema. Neuro- alert, oriented x 3; PERRL, no facial palsy; no dysarthria; moves extremities Langston catheter w/ light yellow urine collection in the bag. Discharge Data Allergies Allergy/AdvReac Type Severity Reaction Status Date / Time No Known Allergies Allergy Verified 09/02/24 08:42 Consultations 09/02/24 19:17 ED Decision to Admit Stat 09/03/24 08:00 Consult General Surgery Routine Consult Urology Routine Hospital Course (1) Urinary retention: Per prior attending with addendum: 73-year-old male with past medical history significant for GERD, history of recurrent C. difficile colitis and currently on p.o. vancomycin once daily, history of colon cancer status post partial colectomy was status post surgery for incarcerated right inguinal hernia today and after going home he was having difficulty micturating and came back to the hospital. Patient states after going home he could not micturate. And while he was straining to micturate he was also having some rectal bleeding from his hemorrhoids. In the ER after Langston catheter placement drained more than 1 L. Currently feeling better. Denies abdominal pain. Denies any nausea. After going home he could eat his dinner. Denies any chest pain or shortness of breath. No cough. No headache. No runny nose or sore throat. Afebrile. Normal bowel movements as per patient. At home some days he used to have difficulty micturating in the morning but as the day progressed he was able to micturate okay. Currently resting comfortably and hemodynamically stable. Sugars are running high in the ER. No known history of diabetes. Urinary retention Postop Status post Langston Flomax Possible underlying BPH Observe in the hospital Urology consult in a.m. for further recommendations Hyperglycemia No history of diabetes Insulin sliding scale Will follow HbA1c levels Incarcerated right inguinal hernia S/p surgery today Surgical site looks okay Surgical consult in a.m. Rectal bleed Mostly from hemorrhoids Will monitor Hemoglobin 12.8 around baseline History of recurrent C. difficile On p.o. vancomycin once daily GERD On Protonix History of colon cancer Status post partial colectomy DVT prophylaxis SCDs for now Disposition Observation medical floor Full code. Addendum 09/03/2024: Patient was seen and examined at bedside as a follow-up of postop urinary retention in the setting of surgical repair of incarcerated right inguinal hernia on 09/02/2024. Patient has Langston catheter in situ, with light yellow urine collection. Patient has no other complaints or fever. Patient reports eating okay and moving bowels okay. Patient is hemodynamically stable and would like to go home. He is being discharged with following instructions at the point of discharge: Follow-up with your primary care physician within a week time and likely you will need labs CBC/CMP/magnesium/phosphorus. For your urinary retention, you will be discharged on Langston catheter. Follow-up with urology in 5 to 7 days time upon discharge. Follow-up with your surgery in 1 to 2 weeks time upon discharge. Take your medications as prescribed. Please make sure that you are able to get your medications today by calling your pharmacy before you leave the hospital so that your treatment continuity is not broken. [facility] Health Attestation I certify th40 Total Time Total Time Spent Total Time Spent (In Minutes): 40 Discharge Plan Discharge Items Patient Disposition: Home - Self-Care Reason For Visit: URINARY RETENTION, HYPERGLYCEMIA Discharge Diagnosis: Postop urinary retention Condition on Discharge: Fair Activity: Resume your previous activity Non-emergency contact: Primary Care Provider Call non-emergency contact if: you have any medication questions and your symptoms worsen Follow-up/Referrals: Frandy Gardner MD [Primary Care Provider] - Diet: Heart Healthy Addtl Attending Provider Instructions: Follow-up with your primary care physician within a week time and likely you will need labs CBC/CMP/magnesium/phosphorus. For your urinary retention, you will be discharged on Langston catheter. Follow-up with urology in 5 to 7 days time upon discharge. Follow-up with your surgery in 1 to 2 weeks time upon discharge. Take your medications as prescribed. Please make sure that you are able to get your medications today by calling your pharmacy before you leave the hospital so that your treatment continuity is not broken. Pending Studies at Discharge: No Stand-Alone Forms: My [employer], Smoking Cessation Medications and DC Order Prescriptions: New tamsulosin 0.4 mg Capsule 0.4 mg PO HS Qty: 30 0RF Continued vancomycin 125 mg capsule 125 mg PO DAILY pantoprazole 40 mg tablet,delayed release (DR/EC) 40 mg PO DAILY magnesium oxide 400 mg magnesium Tablet 400 mg PO DAILY Discharge Orders: Discharge Order (Routine); Ordered 09/03/24 Ordered By: Melani Degroot Admission Data Admit Date/Time: 09/02/24 20:26 Attending Provider: Melani Degroot Admit Provider: Gulshan Gray Primary Care Provider: Frandy Gardner Other Providers: Gulshan Gray; Zeke Azar; Latrell Richter; Cecilia Azar; Raj Colindres; Sweetie Marvin; Wendy Carmona; Scott Melvin; Shu Rossi; Gonzalez Morris; Severiano Koch; Zachery Acuña
[2024-09-03 13:39] VITALS: TEMP 97.9
[2024-09-03] MEDS ORDERED: TAMSULOSIN HCL 0.4 MG CAP PO SCH (21:00)
== END 2024-09-03 15:35 | disposition home or self-care (01) ==
LOC: ED 17:33 → 3N 17:33